=== PATIENT | female | born 1975 | race Caucasian/White ===

== ENCOUNTER 2025-08-28 12:16 | Day surgery (SDC) | payer OTHER ==
--- NOTE | 2025-08-28 07:33 | HP ---
HISTORY OF PRESENT ILLNESS: A 50-year-old female with an enlarging nodular cyst in the anterior neck that had been going on over the past week or so, was on doxycycline and switched to Bactrim DS and clindamycin she said. She is concerned about the risk of ongoing infection, enlarged large size. Desires excision. PAST MEDICAL HISTORY: She had a history of sinus infection. She had some gallbladder disease in the past, heartburn, hypothyroidism, headaches in the past, history of stroke, depression, reflux in the past. MEDICATIONS: Topiramate, citalopram, Synthroid. ALLERGIES: No known drug allergies. PAST SURGICAL HISTORY: She had endometrial ablation in the past. She had gastric bypass sleeve in 2018. She had a hysterectomy in the past, D and C in the past, cholecystectomy in the past, in the past. SOCIAL HISTORY: No smoking. Occasional alcohol use. FAMILY HISTORY: Breast cancer and heart disease. REVIEW OF SYSTEMS: Twelve systems reviewed. Pertinent for medical problems as noted above per admission assessment, otherwise, negative. PHYSICAL EXAMINATION: GENERAL: No acute distress. VITAL SIGNS: Height 5 feet 6 inches, BMI 31.54. HEENT: Sclerae nonicteric. Extraocular movements intact. NECK: No JVD. She has a mild large anterior mucous cyst nodule in her chin. CHEST: Equal excursion, nonlabored breathing. CARDIOVASCULAR: Regular rate and rhythm. ABDOMEN: Soft. SKIN: Dry. EXTREMITIES: No cyanosis or edema. NEUROLOGIC: Alert and oriented. Moving all extremities symmetrically. PSYCHIATRIC: Appropriate mood and affect. IMPRESSION: Question of infected cyst or nodule in the anterior neck. We plan to continue on antibiotics. Offered excision. Risk of scar formation, bleeding, infection, possibly requiring packing; risk of hematoma, seroma; risk of aches, pains, burning, or numbness; risk of anesthesia, DVT, PE, pneumonia; risk of nerve irritation or scar formation. The patient understands all the above but not limited to, agreed to the planned procedure. We will proceed with excisional biopsy of neck cyst or nodule, possibly packing as an outpatient, under general anesthetic. Otherwise, continue medications for depression, reflux, thyroid disease. Continue her antibiotics.
[~2025-08-28 12:16] MED LIST: Sensorcaine 0.25% 10 ML ONE
[2025-08-28] MEDS ORDERED: Lactated Ringers 1,000 ML IV ONE (12:22)
[2025-08-28] MEDS ORDERED: SUBLIMAZE 100 MCG/2 ML ONE (13:04)
[2025-08-28] MEDS ORDERED: Xylocaine-Mpf 2% 5 Ml Vial ONE (13:04)
[2025-08-28] MEDS ORDERED: Versed 2 MG/2 ML Injection ONE (13:04)
[2025-08-28] MEDS ORDERED: Zofran 4 MG/2 ML VIAL ONE (13:04)
[2025-08-28] MEDS ORDERED: TORAdol 30 mg Injection ONE (13:04)
[2025-08-28] MEDS ORDERED: propofoL IV ONE (13:04)
[2025-08-28] MEDS ORDERED: Pre-Attached Lta Kit TP ONE (13:12)
[2025-08-28] MEDS ORDERED: CLINDAMYCIN-D5W 900 MG/50 ML*** 900 MG/50 ML BAG IV ONE (13:58)
[2025-08-28] MEDS ORDERED: Ephedrine Sulfate 50 MG/ML ONE (14:09)
[2025-08-28] MEDS ORDERED: DEXMEDETOMIDINE 80 MCG/20ML-NS IV ONE (14:21)
[2025-08-28] MEDS ORDERED: BRIDION 200MG/2ML IV ONE (14:36)
[2025-08-28 16:18] VITALS: RESP 16; O2SAT 98
[2025-08-28 16:25] VITALS: BP 111/79; PULSE 75; TEMP 97.3
--- NOTE | 2025-08-30 12:23 | OP ---
SURGERY DATE/TIME: 08/28/2025 [id number] PREOPERATIVE DIAGNOSES: 1) Enlarging nodular cyst on her anterior neck. 2) Enlarging back nodular cyst. POSTOPERATIVE DIAGNOSES: 1) Enlarging nodular cyst on her anterior neck. 2) Enlarging back nodular cyst. PROCEDURES: 1) Excisional biopsy, anterior neck nodule (approximately 2.3 cm with margins). 2) Excisional biopsy of 3 cm back nodule including surrounding induration and inflammation with margins of approximately 3 cm specimen margins. SURGEON: Riaz Rosa MD ANESTHESIA: General. QUANTITATIVE BLOOD LOSS: Minimal. INDICATIONS: Consent was obtained. Sites were confirmed, marked in preop holding area. DESCRIPTION OF PROCEDURE AND FINDINGS: She was taken to the operating room. General anesthesia induced. She was placed in position per Anesthesia and OR staff. After official time-out and no disagreement in planned procedure, starting first with the left flank or back area nodule, marking it normal-appearing skin on either side of this. Dissection carried down with a small sliver of skin over the top, down to the indurated area underneath. It felt firm like a cyst. No other etiology. It was carefully passed off for pathology. Wound was closed with 3-0 Vicryl and 4-0 Vicryl. Steri-Strips were also applied. Patient tolerated the procedure well. There were no immediate complications. Attention was turned to the neck area. She was in lateral position and this was then prepped and draped in usual sterile fashion prior to doing the other procedure. Gloves and instruments were changed. Including a small sliver of skin, single shave over the top. Dissection was carried down circumferentially around this very firm, indurated area, carefully dissecting off underlying off anterior neck fascia and passed off for pathology. Measured about 2.3 cm in size. Good hemostasis was noted. There was no evidence of any ameya significant purulence to warrant placing any packing or delbert at this time. I felt it was reasonable, seemed to be clean enough to try closing this, and continued her on some oral antibiotics postoperatively. Patient tolerated procedure well. Subcutaneous closed down to level of fascia with interrupted tapered needle 4-0 Vicryl, undyed. Skin closed with running 5-0 Prolene in subcuticular fashion. Steri-Strips as well and sterile dressing applied. Marcaine 0.25% local injected around the area. Patient tolerated the procedure well. There were no immediate complications. Discussed the findings with the family in the waiting area. I will see her back in the office in 1 week to remove the sutures.
== END 2025-08-28 16:30 | disposition home or self-care (01) ==
LOC: SDC 12:16
PROVIDERS: ATTEND Surgery
DX: L72.3 Sebaceous cyst (principal)

== ENCOUNTER 2025-09-13 06:06 | Day surgery (SDC) | payer OTHER ==
[2025-09-13] MEDS ORDERED: Lactated Ringers 1,000 ML IV ONE (06:27)
[2025-09-13] MEDS ORDERED: Versed 2 MG/2 ML Injection ONE (07:00)
[2025-09-13] MEDS ORDERED: propofoL IV ONE ×2 (07:00→07:20)
[2025-09-13] MEDS ORDERED: Xylocaine-Mpf 2% 5 Ml Vial ONE (07:07)
[2025-09-13 07:31] VITALS: RESP 16; TEMP 97.6; O2SAT 100
[2025-09-13 07:39] VITALS: PULSE 74
[2025-09-13 07:44] VITALS: BP 121/69
--- NOTE | 2025-09-14 10:02 | OP ---
SURGERY DATE/TIME: 09/13/2025 [id number] PREOPERATIVE DIAGNOSES: 1) Screening colonoscopy. 2) Positive Cologuard. POSTOPERATIVE DIAGNOSIS: Normal colon. PROCEDURE PERFORMED: Colonoscopy. SURGEON: Gold Martinez MD. ANESTHESIA: MAC by Lj Odell CRNA. ESTIMATED BLOOD LOSS: None. SPECIMEN: None. DESCRIPTION OF PROCEDURE AND FINDINGS: After informed written consent was obtained, the patient was taken to the endoscopy suite. She was placed in the left lateral decubitus position and anesthesia was titrated to desired level of consciousness. Digital rectal exam showed normal sphincter tone and no internal lesions. The scope was inserted into the rectum and sequentially the entire colonic mucosa was traversed. Level of the cecum was reached and verified with direct visualization of the ileocecal valve. Upon withdrawal, careful mucosal inspection revealed no gross abnormalities. Prep was noted to be good. Prior to withdrawal, retroflexion was performed showing no internal lesions. The scope was removed and the patient was transferred to the recovery room in good condition.
== END 2025-09-13 07:55 | disposition home or self-care (01) ==
LOC: SDC 06:06
PROVIDERS: ATTEND Family Medicine
DX: Z12.11 Encounter for screening for malignant neoplasm of colon (principal); R19.5 Other fecal abnormalities